=== PATIENT | male | born 1950 | race African-American/Black ===

== ENCOUNTER 2017-08-05 17:44 | Inpatient (IN) ==
[2017-08-05] MEDS ORDERED: ONDANSETRON 4 MG/2 ML VIAL ONE ×2 (18:18→21:08)
[2017-08-05] MEDS ORDERED: MORPHINE 4 MG/1 ML VIAL IV STA (18:38)
[2017-08-05] MEDS ORDERED: SODIUM CHLORIDE 0.9% 1,000 ML IV STA (18:38)
[2017-08-05] MEDS ORDERED: ONDANSETRON 4 MG/2 ML VIAL IV STA ×2 (18:38→21:25)
[2017-08-05 18:42] LABS: Basophils % 0.5 % (0.0-0.8); Eosinophils # 0.2 10*3/uL (0.0-0.87); Eosinophils % 2.9 % (0.00-10.9); Hematocrit 41.3 VOL% (42.0-52.0); Hemoglobin 13.8 GM/DL (14.0-18.0); Immature Granulocytes % 0.3 %; Immature Granulocytes Absolute 0.02 #; Lymphocytes # 1.1 10*3/uL (1.4-4.0); Lymphocytes % 17.6 % (21.2-54.2); Mean Corpuscular HGB Conc 33.4 GM/DL (32-36); Mean Corpuscular Hemoglobin 32 PG (27-34); Mean Corpuscular Volume 94.7 FL (87-102); Mean Platelet Volume 11.3 FL (9.6-12.0); Monocytes # 0.7 10*3/uL (0.11-0.8); Monocytes % 10.8 % (1.7-12.7); Neutrophils # 4.3 10*3/uL (1.4-7.4); Neutrophils % 67.9 % (38.7-73.9); Platelet Count 171 T/CUMM (130-400); Red Blood Count 4.36 MC/CUMM (3.8-5.5); Red Cell Distribution Width 13.6 % (9.3-17.3); White Blood Count 6.3 T/CUMM (4-12)
[2017-08-05 18:58] LABS: Alanine Aminotransferase 22 U/L (16-61); Albumin 3.4 G/DL (3.4-5.0); Alkaline Phosphatase 124 U/L (45-117); Amylase 108 U/L (25-115); Aspartate Amino Transferase 58 U/L (0-37); Bilirubin,Total < 0.39 MG/DL (0.2-1.0); Blood Urea Nitrogen 15 MG/DL (7-18); Calcium 8.9 MG/DL (8.5-10.1); Glucose 106 MG/DL (74-106); Osmolality,Calculated 273.8 MOS/KG (273-304); Potassium 4.2 MMOL/L (3.5-5.1); Sodium 137 MMOL/L (136-145); Total Protein 7.9 G/DL (6.4-8.3)
[2017-08-05] MEDS ORDERED: MORPHINE 4 MG/1 ML VIAL ONE (19:10)
[2017-08-05] MEDS ORDERED: PROMETHAZINE 25 MG/1 ML VIAL IM STA (19:19)
[2017-08-05] MEDS ORDERED: PROMETHAZINE 25 MG/1 ML VIAL ONE (19:20)
[2017-08-05 21:21] LABS: Apearance,Urine Clear (Clear); Bilirubin,Urine Negative (Negative); Blood, Urine Negative (Negative); Glucose,Urine (UA) Negative (Negative); Ketones,Urine 25 mg/dL (Negative); Nitrite,Urine Negative (Negative); Protein,Urine Negative; RBC,Urine 0-1 /HPF (0-4); Urine Color Straw (Yellow); Urine Urobilinogen < 1.0 EU/DL (0.2-1.0)
[2017-08-05 21:22] LABS: Bacteria,Urine Rare /HPF (Few); WBC,Urine 0-2 /HPF (0-6)
[2017-08-06] MEDS ORDERED: HYDROmorphone 2 MG/1 ML VIAL IV PRN (02:08)
[2017-08-06] MEDS ORDERED: ONDANSETRON 4 MG/2 ML VIAL IV PRN (02:08)
[2017-08-06] MEDS ORDERED: ACETAMINOPHEN 325 MG TABLET PO PRN (02:08)
[2017-08-06] MEDS ORDERED: PROMETHAZINE 25 MG/1 ML VIAL IM PRN (02:08)
[2017-08-06] MEDS: SODIUM CHLORIDE 0.45% 1,000 ML IV SCH ×3 (02:40→17:52)
[2017-08-06] MEDS: DOCUSATE SODIUM 100 MG CAPSULE PO SCH ×2 (08:07→21:52)
[2017-08-06] MEDS: PANTOPRAZOLE 40 MG TABLET PO SCH (08:08)
[2017-08-06] MEDS ORDERED: FLUoxetine 20 MG CAPSULE PO PRN (13:09)
[2017-08-06] MEDS: VALSARTAN 80 MG TABLET PO SCH ×2 (15:01→21:53)
[2017-08-06] MEDS: ASPIRIN EC 81 MG TABLET PO SCH (15:02)
[2017-08-06] MEDS: CARVEDILOL 6.25 MG TABLET PO SCH (17:19)
[2017-08-07] MEDS: SODIUM CHLORIDE 0.45% 1,000 ML IV SCH ×2 (03:55→16:23)
[2017-08-07 06:24] LABS: Albumin 2.9 G/DL (3.4-5.0); Bilirubin,Total 1.1 MG/DL (0.2-1.0); Osmolality,Calculated 275.5 MOS/KG (273-304); Potassium 3.8 MMOL/L (3.5-5.1); Total Protein 6.2 G/DL (6.4-8.3)
[2017-08-07] MEDS: CARVEDILOL 6.25 MG TABLET PO SCH ×2 (09:03→16:23)
[2017-08-07] MEDS: VALSARTAN 80 MG TABLET PO SCH (09:03)
[2017-08-07] MEDS: PANTOPRAZOLE 40 MG TABLET PO SCH (09:03)
[2017-08-07] MEDS: ASPIRIN EC 81 MG TABLET PO SCH (09:03)
[2017-08-07] MEDS: DOCUSATE SODIUM 100 MG CAPSULE PO SCH (09:03)
[2017-08-07 16:17] VITALS: BP 146/94
== END 2017-08-07 17:00 | disposition home or self-care (01) | DRG 445 ==
LOC: N.ED 17:44 → N.EDINP 08-06 01:19 → N.5E 08-06 01:49
PROVIDERS: ADMIT Family Medicine; ATTEND Family Medicine

== ENCOUNTER 2018-12-10 02:38 | Inpatient (IN) ==
[2018-12-10 04:02] LABS: Basophils % 0.2 % (0.0-0.8); Eosinophils # 0.1 10*3/uL (0.0-0.87); Eosinophils % 0.4 % (0.00-10.9); Hematocrit 33.5 VOL% (42.0-52.0); Immature Granulocytes % 0.8 %; Lymphocytes # 1.3 10*3/uL (1.4-4.0); Mean Corpuscular HGB Conc 32.8 GM/DL (32-36); Mean Corpuscular Volume 98.8 FL (87-102); Monocytes % 9.3 % (1.7-12.7); Neutrophils % 79.3 % (38.7-73.9); Platelet Count 260 T/CUMM (130-400); Red Blood Count 3.39 MC/CUMM (3.8-5.5); Red Cell Distribution Width 14.1 % (9.3-17.3); White Blood Count 12.8 T/CUMM (4-12)
[2018-12-10 04:08] LABS: INR 1.1; PT Patient Result 11.9 SECS (9.6-12.2); Partial Thromboplastin Time 32.2 SECS (20.8-36.0)
[2018-12-10 04:15] LABS: Albumin 2.2 G/DL (3.4-5.0); Bilirubin,Total 0.5 MG/DL (0.2-1.0); Calcium 8.8 MG/DL (8.5-10.1)
[2018-12-10] MEDS ORDERED: VANCOMYCIN INJ 1,000 MG in SODIUM CHLORIDE 0.9% 250 ML IV STA (06:40)
[2018-12-10] MEDS ORDERED: CEFEPIME 2,000 MG in SODIUM CHLORIDE 0.9% 100 ML IV STA (06:40)
[2018-12-10] MEDS ORDERED: ACETAMINOPHEN 325 MG TABLET PO PRN (06:41)
[2018-12-10] MEDS ORDERED: HYDROmorphone 2 MG TABLET PO PRN (06:41)
[2018-12-10] MEDS ORDERED: CEFEPIME 1,000 MG VIAL ONE (06:43)
[2018-12-10] MEDS: DEXTROSE 5% NACL 0.9% 1,000 ML IV SCH ×2 (07:57→16:06)
[2018-12-10] MEDS ORDERED: FLUoxetine 20 MG CAPSULE PO PRN (09:33)
[2018-12-10] MEDS ORDERED: NITROGLYCERIN SL 0.4 MG TABLET SL PRN (09:33)
[2018-12-10] MEDS: DOCUSATE SODIUM 100 MG CAPSULE PO SCH ×2 (10:15→21:41)
[2018-12-10] MEDS: PANTOPRAZOLE 40 MG VIAL IV SCH (10:15)
[2018-12-10] MEDS: ENOXAPARIN 40 MG/0.4 ML SYRINGE SUBCUT SCH ×2 (10:15→21:40)
[2018-12-10] MEDS: cefTRIAXone 1,000 MG in SYRINGE 1 EACH IV SCH (13:46)
[2018-12-10] MEDS: DEXTROMETHORPHAN ER 6 MG/ML 90 ML/BOTTLE PO PRN (14:51)
[2018-12-10] MEDS: ASCORBIC ACID 500 MG TABLET PO SCH (21:40)
[2018-12-11] MEDS: DEXTROSE 5% NACL 0.9% 1,000 ML IV SCH ×3 (00:53→19:01)
[2018-12-11] MEDS: SIMETHICONE CHEW 125 MG TABLET PO PRN (00:53)
[2018-12-11] MEDS: MORPHINE 4 MG/1 ML VIAL IV PRN ×2 (01:59→06:50)
[2018-12-11] MEDS: ONDANSETRON 4 MG/2 ML VIAL IV PRN (01:59)
[2018-12-11] MEDS: ALBUTEROL/IPRATROPIUM 3 ML NEB RESP TX SCH ×6 (02:50→23:40)
[2018-12-11] MEDS: ASCORBIC ACID 500 MG TABLET PO SCH ×2 (08:29→23:34)
[2018-12-11] MEDS: CHOLECALCIFEROL 1,000 UNIT TABLET PO SCH (08:29)
[2018-12-11] MEDS: AMIODARONE 200 MG TABLET PO SCH (08:29)
[2018-12-11] MEDS: LOSARTAN 50 MG TABLET PO SCH (08:29)
[2018-12-11] MEDS: DOCUSATE SODIUM 100 MG CAPSULE PO SCH ×2 (08:29→23:34)
[2018-12-11] MEDS: PANTOPRAZOLE 40 MG VIAL IV SCH (08:30)
[2018-12-11] MEDS: HYDROmorphone 2 MG/1 ML VIAL IV PRN ×5 (08:55→23:35)
[2018-12-11] MEDS ORDERED: Tadalafil [Cialis] 5 MG PO SCH (09:00)
[2018-12-11] MEDS ORDERED: carvediloL 6.25 MG TABLET PO SCH (09:00)
[2018-12-11] MEDS: ENOXAPARIN 40 MG/0.4 ML SYRINGE SUBCUT SCH ×2 (09:48→23:33)
[2018-12-11] MEDS: cefTRIAXone 1,000 MG in SYRINGE 1 EACH IV SCH ×2 (13:28→14:18)
[2018-12-11] MEDS ORDERED: PHENOL 1.4% THROAT SPRAY 177 ML BOTTLE PO PRN (15:32)
[2018-12-12] MEDS: ALBUTEROL/IPRATROPIUM 3 ML NEB RESP TX SCH ×6 (04:06→22:45)
[2018-12-12] MEDS: HYDROmorphone 2 MG/1 ML VIAL IV PRN ×4 (06:38→22:16)
[2018-12-12] MEDS: DEXTROMETHORPHAN ER 6 MG/ML 90 ML/BOTTLE PO PRN (06:51)
[2018-12-12] MEDS ORDERED: carvediloL 3.125 MG TABLET PO SCH (09:00)
[2018-12-12] MEDS: DEXTROSE 5% NACL 0.9% 1,000 ML IV SCH ×4 (09:42→18:47)
[2018-12-12] MEDS: ENOXAPARIN 40 MG/0.4 ML SYRINGE SUBCUT SCH (09:53)
[2018-12-12] MEDS: AMIODARONE 200 MG TABLET PO SCH (09:55)
[2018-12-12] MEDS: PANTOPRAZOLE 40 MG VIAL IV SCH (09:55)
[2018-12-12] MEDS: LOSARTAN 50 MG TABLET PO SCH (09:55)
[2018-12-12] MEDS: ASCORBIC ACID 500 MG TABLET PO SCH ×2 (09:55→22:07)
[2018-12-12] MEDS: CHOLECALCIFEROL 1,000 UNIT TABLET PO SCH (09:55)
[2018-12-12] MEDS: carvediloL 6.25 MG TABLET PO SCH ×2 (09:55→22:07)
[2018-12-12] MEDS: DOCUSATE SODIUM 100 MG CAPSULE PO SCH ×2 (09:55→22:07)
[2018-12-12] MEDS: oxyCODONE/ACETAMINOPHEN 5-325 MG TABLET PO PRN ×2 (11:45→22:58)
[2018-12-12] MEDS: cefTRIAXone 1,000 MG in SYRINGE 1 EACH IV SCH (11:46)
[2018-12-12 14:59] LABS: Amorphous Crystals,Urine Occasional /HPF (Few); Apearance,Urine Slightly Hazy (Clear); Bacteria,Urine Occasional /HPF (Few); Bilirubin,Urine Negative (Negative); Blood, Urine Negative (Negative); Glucose,Urine (UA) Negative (Negative); Ketones,Urine Negative (Negative); Mucus,Urine Occasional /LPF (Occasional); Nitrite,Urine Negative (Negative); Protein,Urine Negative; RBC,Urine 2 /HPF (0-4); Squamous Epithelial Cell,Urine Occasional /HPF (0-10); Urine Color Yellow (Yellow); Urine Specific Gravity 1.011 (1.001-1.035); Urine Urobilinogen < 2.0 EU/DL (0.2-1.0); WBC,Urine 1 /HPF (0-6)
[2018-12-13] MEDS: HYDROmorphone 2 MG/1 ML VIAL IV PRN ×4 (02:13→13:05)
[2018-12-13] MEDS: ALBUTEROL/IPRATROPIUM 3 ML NEB RESP TX SCH ×6 (02:47→23:15)
[2018-12-13] MEDS: oxyCODONE/ACETAMINOPHEN 5-325 MG TABLET PO PRN ×3 (03:23→21:23)
[2018-12-13] MEDS: DEXTROSE 5% NACL 0.9% 1,000 ML IV SCH ×3 (03:24→22:25)
[2018-12-13 05:24] LABS: Basophils % 0.2 % (0.0-0.8); Eosinophils # 0.1 10*3/uL (0.0-0.87); Eosinophils % 0.9 % (0.00-10.9); Hemoglobin 8.6 GM/DL (14.0-18.0); Immature Granulocytes % 1.1 %; Immature Granulocytes Absolute 0.12 #; Lymphocytes # 0.7 10*3/uL (1.4-4.0); Lymphocytes % 6.4 % (21.2-54.2); Mean Corpuscular HGB Conc 31.9 GM/DL (32-36); Mean Corpuscular Volume 101.1 FL (87-102); Mean Platelet Volume 9.4 FL (9.6-12.0); Monocytes % 9.4 % (1.7-12.7); Platelet Count 207 T/CUMM (130-400); Red Blood Count 2.67 MC/CUMM (3.8-5.5); Red Cell Distribution Width 14.2 % (9.3-17.3); White Blood Count 11.2 T/CUMM (4-12)
[2018-12-13 05:57] LABS: Albumin 1.5 G/DL (3.4-5.0); Bilirubin,Total 0.9 MG/DL (0.2-1.0); Calcium 7.9 MG/DL (8.5-10.1); Osmolality,Calculated 279.3 MOS/KG (273-304); Thyroid Stimulating Hormone 1.96 uIU/ml (0.358-3.74); Total Protein 5.3 G/DL (6.4-8.3)
[2018-12-13] MEDS ORDERED: PROMETHAZINE 25 MG/1 ML VIAL IM ONE (07:00)
[2018-12-13] MEDS ORDERED: MEPERIDINE 50 MG/1 ML VIAL IM ONE (07:00)
[2018-12-13] MEDS ORDERED: MIDAZOLAM 2 MG/2 ML VIAL IV ONE (07:30)
[2018-12-13] MEDS ORDERED: LIDOCAINE 2% 20 ML VIAL RESP TX ONE (07:30)
[2018-12-13] MEDS ORDERED: LIDOCAINE 2% VISCOUS 100 ML BOTTLE SWISH/SPIT ONE (07:30)
[2018-12-13] MEDS ORDERED: LIDOCAINE 1% 20 ML VIAL MISC INJ ONE (07:30)
[2018-12-13] MEDS ORDERED: MIDAZOLAM 2 MG/2 ML VIAL ONE (07:44)
[2018-12-13] MEDS: ASCORBIC ACID 500 MG TABLET PO SCH ×2 (10:08→21:23)
[2018-12-13] MEDS: AMIODARONE 200 MG TABLET PO SCH (10:08)
[2018-12-13] MEDS: DOCUSATE SODIUM 100 MG CAPSULE PO SCH ×2 (10:08→21:23)
[2018-12-13] MEDS: CHOLECALCIFEROL 1,000 UNIT TABLET PO SCH (10:09)
[2018-12-13] MEDS: carvediloL 6.25 MG TABLET PO SCH ×2 (10:09→21:23)
[2018-12-13] MEDS: PANTOPRAZOLE 40 MG VIAL IV SCH (10:09)
[2018-12-13] MEDS: LOSARTAN 50 MG TABLET PO SCH (10:11)
[2018-12-13] MEDS: cefTRIAXone 1,000 MG in SYRINGE 1 EACH IV SCH (13:08)
[2018-12-13] MEDS: ENOXAPARIN 40 MG/0.4 ML SYRINGE SUBCUT SCH (21:23)
[2018-12-14] MEDS: HYDROmorphone 2 MG/1 ML VIAL IV PRN ×5 (00:58→23:43)
[2018-12-14] MEDS: ALBUTEROL/IPRATROPIUM 3 ML NEB RESP TX SCH ×6 (02:56→23:55)
[2018-12-14] MEDS: oxyCODONE/ACETAMINOPHEN 5-325 MG TABLET PO PRN ×3 (03:16→18:28)
[2018-12-14 04:41] LABS: Basophils % 0.2 % (0.0-0.8); Eosinophils # 0.1 10*3/uL (0.0-0.87); Eosinophils % 0.9 % (0.00-10.9); Hematocrit 25.7 VOL% (42.0-52.0); Hemoglobin 8.5 GM/DL (14.0-18.0); Immature Granulocytes % 1.3 %; Immature Granulocytes Absolute 0.13 #; Lymphocytes # 0.6 10*3/uL (1.4-4.0); Lymphocytes % 5.6 % (21.2-54.2); Mean Corpuscular HGB Conc 33.1 GM/DL (32-36); Mean Corpuscular Volume 98.8 FL (87-102); Mean Platelet Volume 9.3 FL (9.6-12.0); Monocytes % 8.7 % (1.7-12.7); Neutrophils % 83.3 % (38.7-73.9); Platelet Count 196 T/CUMM (130-400); Red Cell Distribution Width 14.1 % (9.3-17.3); White Blood Count 10.4 T/CUMM (4-12)
[2018-12-14 05:09] LABS: Albumin 1.4 G/DL (3.4-5.0); Bilirubin,Total 0.5 MG/DL (0.2-1.0); Calcium 7.8 MG/DL (8.5-10.1); Osmolality,Calculated 280.3 MOS/KG (273-304); Risk Ratio 3.05; Total Protein 5.3 G/DL (6.4-8.3); VLDL CHOLESTEROL 8.2 MG/DL
[2018-12-14] MEDS: DEXTROSE 5% NACL 0.9% 1,000 ML IV SCH ×3 (06:19→22:32)
[2018-12-14] MEDS: carvediloL 6.25 MG TABLET PO SCH ×2 (08:02→20:57)
[2018-12-14] MEDS: LOSARTAN 50 MG TABLET PO SCH (08:02)
[2018-12-14] MEDS: ASCORBIC ACID 500 MG TABLET PO SCH ×2 (08:02→20:56)
[2018-12-14] MEDS: DOCUSATE SODIUM 100 MG CAPSULE PO SCH ×2 (08:02→20:57)
[2018-12-14] MEDS: CHOLECALCIFEROL 1,000 UNIT TABLET PO SCH (08:02)
[2018-12-14] MEDS: AMIODARONE 200 MG TABLET PO SCH (08:02)
[2018-12-14] MEDS: PANTOPRAZOLE 40 MG VIAL IV SCH (08:03)
[2018-12-14] MEDS: ENOXAPARIN 40 MG/0.4 ML SYRINGE SUBCUT SCH ×2 (10:22→23:05)
[2018-12-14] MEDS: cefTRIAXone 1,000 MG in SYRINGE 1 EACH IV SCH (11:58)
[2018-12-14] MEDS ORDERED: PIPERACILLIN/TAZOBACTAM 4,500 MG in SODIUM CHLORIDE 0.9% 100 ML IV SCH (14:00)
[2018-12-14] MEDS: PIPERACILLIN/TAZOBACTAM 3,375 MG in SODIUM CHLORIDE 0.9% 100 ML IV SCH ×2 (14:17→22:29)
[2018-12-15] MEDS: oxyCODONE/ACETAMINOPHEN 5-325 MG TABLET PO PRN ×3 (02:08→21:36)
[2018-12-15] MEDS: ALBUTEROL/IPRATROPIUM 3 ML NEB RESP TX SCH ×6 (03:16→23:55)
[2018-12-15] MEDS: DEXTROSE 5% NACL 0.9% 1,000 ML IV SCH (05:08)
[2018-12-15 06:16] LABS: Basophils % 0.1 % (0.0-0.8); Eosinophils # 0.1 10*3/uL (0.0-0.87); Eosinophils % 0.9 % (0.00-10.9); Hematocrit 25.9 VOL% (42.0-52.0); Hemoglobin 8.7 GM/DL (14.0-18.0); Immature Granulocytes % 0.8 %; Immature Granulocytes Absolute 0.08 #; Lymphocytes # 0.8 10*3/uL (1.4-4.0); Lymphocytes % 8.1 % (21.2-54.2); Mean Corpuscular HGB Conc 33.6 GM/DL (32-36); Mean Corpuscular Volume 98.9 FL (87-102); Mean Platelet Volume 9.5 FL (9.6-12.0); Monocytes % 8.8 % (1.7-12.7); Neutrophils % 81.3 % (38.7-73.9); Platelet Count 222 T/CUMM (130-400); Red Blood Count 2.62 MC/CUMM (3.8-5.5); Red Cell Distribution Width 14.3 % (9.3-17.3); White Blood Count 9.8 T/CUMM (4-12)
[2018-12-15 06:41] LABS: Albumin 1.4 G/DL (3.4-5.0); Bilirubin,Total 0.7 MG/DL (0.2-1.0); Calcium 8.1 MG/DL (8.5-10.1); Osmolality,Calculated 281.1 MOS/KG (273-304); Total Protein 5.5 G/DL (6.4-8.3)
[2018-12-15] MEDS: PIPERACILLIN/TAZOBACTAM 3,375 MG in SODIUM CHLORIDE 0.9% 100 ML IV SCH ×3 (07:11→21:34)
[2018-12-15] MEDS ORDERED: FUROSEMIDE 40 MG/4 ML VIAL IV ONE (08:53)
[2018-12-15] MEDS: HYDROmorphone 2 MG/1 ML VIAL IV PRN ×3 (09:34→19:49)
[2018-12-15] MEDS ORDERED: LIDOCAINE 2% 20 ML VIAL MISC INJ ONE (10:00)
[2018-12-15] MEDS: LOSARTAN 50 MG TABLET PO SCH (10:25)
[2018-12-15] MEDS: DOCUSATE SODIUM 100 MG CAPSULE PO SCH ×2 (10:25→21:26)
[2018-12-15] MEDS: ASCORBIC ACID 500 MG TABLET PO SCH ×2 (10:26→21:26)
[2018-12-15] MEDS: carvediloL 6.25 MG TABLET PO SCH ×2 (10:26→21:26)
[2018-12-15] MEDS: AMIODARONE 200 MG TABLET PO SCH (10:26)
[2018-12-15] MEDS: CHOLECALCIFEROL 1,000 UNIT TABLET PO SCH (10:26)
[2018-12-15] MEDS: PANTOPRAZOLE 40 MG VIAL IV SCH (10:27)
[2018-12-15] MEDS ORDERED: LIDOCAINE 2%/EPI 20 ML VIAL MISC INJ ONE (10:38)
[2018-12-15] MEDS ORDERED: MORPHINE 4 MG/1 ML VIAL IV ONE (10:40)
[2018-12-15] MEDS ORDERED: LIDOCAINE 1%/EPI INJ 20 ML VIAL MISC INJ ONE (11:00)
[2018-12-15] MEDS: ENOXAPARIN 40 MG/0.4 ML SYRINGE SUBCUT SCH ×2 (12:34→21:38)
[2018-12-15] MEDS ORDERED: SODIUM CHLORIDE 0.9% 500 ML IV ONE (14:16)
[2018-12-16] MEDS: ALBUTEROL/IPRATROPIUM 3 ML NEB RESP TX SCH ×6 (03:30→23:15)
[2018-12-16] MEDS: HYDROmorphone 2 MG/1 ML VIAL IV PRN ×4 (04:43→21:40)
[2018-12-16 05:44] LABS: Basophils % 0.2 % (0.0-0.8); Eosinophils # 0.1 10*3/uL (0.0-0.87); Eosinophils % 1.6 % (0.00-10.9); Hematocrit 27.9 VOL% (42.0-52.0); Hemoglobin 9.3 GM/DL (14.0-18.0); Immature Granulocytes % 0.7 %; Immature Granulocytes Absolute 0.04 #; Lymphocytes % 18.6 % (21.2-54.2); Mean Corpuscular HGB Conc 33.3 GM/DL (32-36); Mean Corpuscular Volume 96.5 FL (87-102); Mean Platelet Volume 9.2 FL (9.6-12.0); Monocytes % 10.4 % (1.7-12.7); Neutrophils % 68.5 % (38.7-73.9); Platelet Count 227 T/CUMM (130-400); Red Blood Count 2.89 MC/CUMM (3.8-5.5); Red Cell Distribution Width 14.2 % (9.3-17.3); White Blood Count 5.5 T/CUMM (4-12)
[2018-12-16 06:07] LABS: Albumin 1.5 G/DL (3.4-5.0); Bilirubin,Total 0.6 MG/DL (0.2-1.0); Calcium 8.3 MG/DL (8.5-10.1); Osmolality,Calculated 282.1 MOS/KG (273-304); Total Protein 5.8 G/DL (6.4-8.3)
[2018-12-16] MEDS: PIPERACILLIN/TAZOBACTAM 3,375 MG in SODIUM CHLORIDE 0.9% 100 ML IV SCH ×3 (06:50→21:44)
[2018-12-16] MEDS: LOSARTAN 50 MG TABLET PO SCH (08:16)
[2018-12-16] MEDS: ASCORBIC ACID 500 MG TABLET PO SCH ×2 (08:16→21:40)
[2018-12-16] MEDS: carvediloL 6.25 MG TABLET PO SCH ×2 (08:16→21:40)
[2018-12-16] MEDS: AMIODARONE 200 MG TABLET PO SCH (08:16)
[2018-12-16] MEDS: CHOLECALCIFEROL 1,000 UNIT TABLET PO SCH (08:16)
[2018-12-16] MEDS: DOCUSATE SODIUM 100 MG CAPSULE PO SCH ×2 (08:16→21:40)
[2018-12-16] MEDS: PANTOPRAZOLE 40 MG VIAL IV SCH (08:21)
[2018-12-16] MEDS: ENOXAPARIN 40 MG/0.4 ML SYRINGE SUBCUT SCH ×2 (09:04→21:42)
[2018-12-16] MEDS ORDERED: ALTEPLASE 5 MG in SYRINGE 1 EACH INTRAPLEUR ONE (10:30)
[2018-12-16] MEDS: DEXTROMETHORPHAN ER 6 MG/ML 90 ML/BOTTLE PO PRN (10:54)
[2018-12-16] MEDS: oxyCODONE/ACETAMINOPHEN 5-325 MG TABLET PO PRN ×3 (11:45→23:11)
[2018-12-16] MEDS ORDERED: POLYETHYLENE GLYCOL POWDER 17 GM PACK PO PRN (13:31)
[2018-12-16] MEDS: traMADol 50 MG TABLET PO PRN (21:55)
[2018-12-17] MEDS: oxyCODONE/ACETAMINOPHEN 5-325 MG TABLET PO PRN ×2 (02:20→21:27)
[2018-12-17] MEDS: ALBUTEROL/IPRATROPIUM 3 ML NEB RESP TX SCH ×6 (02:33→23:44)
[2018-12-17 05:37] LABS: Basophils % 0.2 % (0.0-0.8); Eosinophils # 0.1 10*3/uL (0.0-0.87); Eosinophils % 1.8 % (0.00-10.9); Hematocrit 27.5 VOL% (42.0-52.0); Hemoglobin 9.1 GM/DL (14.0-18.0); Immature Granulocytes % 0.6 %; Immature Granulocytes Absolute 0.03 #; Lymphocytes # 1.1 10*3/uL (1.4-4.0); Lymphocytes % 20.9 % (21.2-54.2); Mean Corpuscular HGB Conc 33.1 GM/DL (32-36); Mean Corpuscular Volume 96.2 FL (87-102); Mean Platelet Volume 9.1 FL (9.6-12.0); Monocytes % 11.2 % (1.7-12.7); Neutrophils % 65.3 % (38.7-73.9); Platelet Count 236 T/CUMM (130-400); Red Blood Count 2.86 MC/CUMM (3.8-5.5); Red Cell Distribution Width 14.1 % (9.3-17.3)
[2018-12-17 05:54] LABS: Albumin 1.5 G/DL (3.4-5.0); Bilirubin,Total 0.6 MG/DL (0.2-1.0); Calcium 7.9 MG/DL (8.5-10.1); Osmolality,Calculated 277.4 MOS/KG (273-304); Total Protein 5.6 G/DL (6.4-8.3)
[2018-12-17 06:11] LABS: Atypical Lymphocytes Few; Eosinophils 2 % (0-10); Hypochromasia 1+; Lymphocytes 15 % (20-55); Metamyelocytes 1 %; Segmented Neutrophils 72 % (50-85); Total Cells Counted 100
[2018-12-17 06:12] LABS: Microcytosis Slight; Platelet Estimate Normal
[2018-12-17] MEDS: PIPERACILLIN/TAZOBACTAM 3,375 MG in SODIUM CHLORIDE 0.9% 100 ML IV SCH ×4 (06:40→21:38)
[2018-12-17] MEDS: ASCORBIC ACID 500 MG TABLET PO SCH ×2 (08:08→21:34)
[2018-12-17] MEDS: LOSARTAN 50 MG TABLET PO SCH (08:08)
[2018-12-17] MEDS: DOCUSATE SODIUM 100 MG CAPSULE PO SCH ×2 (08:08→21:26)
[2018-12-17] MEDS: carvediloL 6.25 MG TABLET PO SCH ×2 (08:08→21:26)
[2018-12-17] MEDS: AMIODARONE 200 MG TABLET PO SCH (08:08)
[2018-12-17] MEDS: CHOLECALCIFEROL 1,000 UNIT TABLET PO SCH (08:08)
[2018-12-17] MEDS: ONDANSETRON 4 MG/2 ML VIAL IV PRN (08:12)
[2018-12-17] MEDS: PANTOPRAZOLE 40 MG VIAL IV SCH (08:14)
[2018-12-17] MEDS: ENOXAPARIN 40 MG/0.4 ML SYRINGE SUBCUT SCH ×3 (08:15→21:35)
[2018-12-17] MEDS: HYDROmorphone 2 MG/1 ML VIAL IV PRN (15:11)
[2018-12-18] MEDS: ALBUTEROL/IPRATROPIUM 3 ML NEB RESP TX SCH ×6 (05:15→23:25)
[2018-12-18] MEDS: PIPERACILLIN/TAZOBACTAM 3,375 MG in SODIUM CHLORIDE 0.9% 100 ML IV SCH ×3 (05:36→21:25)
[2018-12-18 06:31] LABS: Basophils % 0.2 % (0.0-0.8); Eosinophils # 0.1 10*3/uL (0.0-0.87); Eosinophils % 1.8 % (0.00-10.9); Hemoglobin 8.6 GM/DL (14.0-18.0); Immature Granulocytes % 0.8 %; Immature Granulocytes Absolute 0.04 #; Lymphocytes # 1.2 10*3/uL (1.4-4.0); Lymphocytes % 24.1 % (21.2-54.2); Mean Corpuscular HGB Conc 33.1 GM/DL (32-36); Mean Corpuscular Volume 96.7 FL (87-102); Mean Platelet Volume 9.1 FL (9.6-12.0); Monocytes % 14.7 % (1.7-12.7); Neutrophils % 58.4 % (38.7-73.9); Platelet Count 240 T/CUMM (130-400); Red Blood Count 2.69 MC/CUMM (3.8-5.5); Red Cell Distribution Width 14.2 % (9.3-17.3); White Blood Count 4.9 T/CUMM (4-12)
[2018-12-18 06:49] LABS: Osmolality,Calculated 278.3 MOS/KG (273-304)
[2018-12-18 06:53] LABS: Hypochromasia 1+; Microcytosis Slight; Platelet Estimate Adequate
[2018-12-18] MEDS: AMIODARONE 200 MG TABLET PO SCH (09:30)
[2018-12-18] MEDS: DOCUSATE SODIUM 100 MG CAPSULE PO SCH ×2 (09:30→21:21)
[2018-12-18] MEDS: HYDROmorphone 2 MG/1 ML VIAL IV PRN ×4 (09:31→17:51)
[2018-12-18] MEDS: CHOLECALCIFEROL 1,000 UNIT TABLET PO SCH (09:31)
[2018-12-18] MEDS: ASCORBIC ACID 500 MG TABLET PO SCH ×2 (09:31→21:21)
[2018-12-18] MEDS: LOSARTAN 50 MG TABLET PO SCH (09:31)
[2018-12-18] MEDS: carvediloL 6.25 MG TABLET PO SCH ×2 (09:31→21:22)
[2018-12-18] MEDS: PANTOPRAZOLE 40 MG VIAL IV SCH (09:31)
[2018-12-18] MEDS: ONDANSETRON 4 MG/2 ML VIAL IV PRN (09:32)
[2018-12-18] MEDS: ENOXAPARIN 40 MG/0.4 ML SYRINGE SUBCUT SCH ×2 (09:33→21:52)
[2018-12-18] MEDS ORDERED: ALTEPLASE 5 MG in SYRINGE 1 EACH INTRAPLEUR ONE (09:37)
[2018-12-18] MEDS: ALPRAZolam 0.25 MG TABLET PO PRN ×2 (12:06→21:21)
[2018-12-18] MEDS: oxyCODONE/ACETAMINOPHEN 5-325 MG TABLET PO PRN ×2 (12:10→21:22)
[2018-12-18] MEDS: SIMETHICONE CHEW 125 MG TABLET PO PRN (16:10)
[2018-12-19] MEDS: oxyCODONE/ACETAMINOPHEN 5-325 MG TABLET PO PRN (02:32)
[2018-12-19] MEDS: ALBUTEROL/IPRATROPIUM 3 ML NEB RESP TX SCH ×6 (03:38→23:10)
[2018-12-19] MEDS: PIPERACILLIN/TAZOBACTAM 3,375 MG in SODIUM CHLORIDE 0.9% 100 ML IV SCH ×3 (05:47→21:22)
[2018-12-19 06:09] LABS: Basophils % 0.2 % (0.0-0.8); Eosinophils # 0.1 10*3/uL (0.0-0.87); Eosinophils % 2.3 % (0.00-10.9); Hematocrit 26.7 VOL% (42.0-52.0); Hemoglobin 8.8 GM/DL (14.0-18.0); Immature Granulocytes % 0.8 %; Immature Granulocytes Absolute 0.04 #; Lymphocytes # 1.1 10*3/uL (1.4-4.0); Lymphocytes % 20.6 % (21.2-54.2); Mean Corpuscular Volume 97.8 FL (87-102); Mean Platelet Volume 8.9 FL (9.6-12.0); Monocytes % 16.1 % (1.7-12.7); Platelet Count 256 T/CUMM (130-400); Red Blood Count 2.73 MC/CUMM (3.8-5.5); Red Cell Distribution Width 14.1 % (9.3-17.3); White Blood Count 5.3 T/CUMM (4-12)
[2018-12-19 06:19] LABS: Calcium 8.1 MG/DL (8.5-10.1); Osmolality,Calculated 279.3 MOS/KG (273-304)
[2018-12-19 06:31] LABS: Eosinophils 3 % (0-10); Hypochromasia 1+; Lymphocytes 22 % (20-55); Microcytosis Slight; Platelet Estimate Adequate; Segmented Neutrophils 63 % (50-85); Total Cells Counted 100
[2018-12-19] MEDS: ASCORBIC ACID 500 MG TABLET PO SCH ×2 (09:25→21:21)
[2018-12-19] MEDS: CHOLECALCIFEROL 1,000 UNIT TABLET PO SCH (09:26)
[2018-12-19] MEDS: LOSARTAN 50 MG TABLET PO SCH (09:28)
[2018-12-19] MEDS: carvediloL 6.25 MG TABLET PO SCH ×2 (09:28→21:21)
[2018-12-19] MEDS: AMIODARONE 200 MG TABLET PO SCH (09:28)
[2018-12-19] MEDS: DOCUSATE SODIUM 100 MG CAPSULE PO SCH ×2 (09:33→21:21)
[2018-12-19] MEDS: ENOXAPARIN 40 MG/0.4 ML SYRINGE SUBCUT SCH ×2 (10:20→21:21)
[2018-12-19] MEDS: PANTOPRAZOLE 40 MG TABLET PO SCH (10:28)
[2018-12-19] MEDS: ALPRAZolam 0.25 MG TABLET PO PRN (18:30)
[2018-12-19] MEDS: HYDROmorphone 2 MG/1 ML VIAL IV PRN (21:31)
[2018-12-20] MEDS: traMADol 50 MG TABLET PO PRN (00:18)
[2018-12-20] MEDS: ALBUTEROL/IPRATROPIUM 3 ML NEB RESP TX SCH ×4 (03:10→14:53)
[2018-12-20] MEDS: HYDROmorphone 2 MG/1 ML VIAL IV PRN (04:33)
[2018-12-20 05:46] LABS: Basophils % 0.4 % (0.0-0.8); Eosinophils # 0.2 10*3/uL (0.0-0.87); Eosinophils % 2.8 % (0.00-10.9); Hematocrit 28.2 VOL% (42.0-52.0); Hemoglobin 9.3 GM/DL (14.0-18.0); Immature Granulocytes % 0.7 %; Immature Granulocytes Absolute 0.04 #; Lymphocytes # 1.3 10*3/uL (1.4-4.0); Lymphocytes % 24.8 % (21.2-54.2); Mean Corpuscular Volume 97.9 FL (87-102); Monocytes % 14.3 % (1.7-12.7); Platelet Count 278 T/CUMM (130-400); Red Blood Count 2.88 MC/CUMM (3.8-5.5); Red Cell Distribution Width 14.1 % (9.3-17.3); White Blood Count 5.4 T/CUMM (4-12)
[2018-12-20] MEDS: PIPERACILLIN/TAZOBACTAM 3,375 MG in SODIUM CHLORIDE 0.9% 100 ML IV SCH ×2 (05:57→13:49)
[2018-12-20 06:02] LABS: Calcium 8.2 MG/DL (8.5-10.1); Osmolality,Calculated 273.5 MOS/KG (273-304)
[2018-12-20 06:14] LABS: Eosinophils 1 % (0-10); Hypochromasia 1+; Lymphocytes 21 % (20-55); Myelocytes 1 %; Platelet Estimate Normal; Segmented Neutrophils 68 % (50-85); Total Cells Counted 100
[2018-12-20] MEDS: ONDANSETRON 4 MG/2 ML VIAL IV PRN (07:40)
[2018-12-20] MEDS: DOCUSATE SODIUM 100 MG CAPSULE PO SCH (09:44)
[2018-12-20] MEDS: AMIODARONE 200 MG TABLET PO SCH (09:45)
[2018-12-20] MEDS: carvediloL 6.25 MG TABLET PO SCH (09:45)
[2018-12-20] MEDS: LOSARTAN 50 MG TABLET PO SCH (09:46)
[2018-12-20] MEDS: PANTOPRAZOLE 40 MG TABLET PO SCH (09:47)
[2018-12-20] MEDS: ASCORBIC ACID 500 MG TABLET PO SCH (09:47)
[2018-12-20] MEDS: CHOLECALCIFEROL 1,000 UNIT TABLET PO SCH (09:48)
[2018-12-20] MEDS: ENOXAPARIN 40 MG/0.4 ML SYRINGE SUBCUT SCH (10:24)
[2018-12-20 16:16] VITALS: BP 143/75
[2018-12-20] MEDS ORDERED: AMOXICILLIN/CLAV 875 MG TABLET PO SCH (21:00)
[2018-12-20] MEDS ORDERED: BUDESONIDE/FORMOTEROL 160-4.5 INHALER 6 GM INH SCH (21:00)
[2018-12-22] MEDS ORDERED: Evolocumab [Repatha Sureclick] 140 MG SUBCUT SCH (07:00)
== END 2018-12-20 19:09 | disposition home health service (06) | DRG 180 ==
LOC: EDUNIT# → EDBD → N.EDINP 02:38 → N.ED 02:38 → N.EDINP 08:48 → N.5E 09:04
PROVIDERS: ADMIT Family Medicine; ATTEND Family Medicine
PROC: BRONCHB (2018-12-13 07:35)
PROC: IRTHORA (2018-12-14 08:57)

== ENCOUNTER 2020-11-24 08:59 | Inpatient (IN) ==
[2020-11-24 10:14] LABS: Basophils % 0.5 % (0.0-0.8); Eosinophils # 0.1 10*3/uL (0.0-0.87); Hemoglobin 12.7 GM/DL (14.0-18.0); Immature Granulocytes % 0.5 %; Immature Granulocytes Absolute 0.02 #; Lymphocytes # 1.3 10*3/uL (1.4-4.0); Lymphocytes % 29.6 % (21.2-54.2); Mean Corpuscular HGB Conc 32.6 GM/DL (32-36); Mean Corpuscular Volume 100.5 FL (87-102); Mean Platelet Volume 10.5 FL (9.6-12.0); Monocytes % 15.2 % (1.7-12.7); Neutrophils % 52.2 % (38.7-73.9); Platelet Count 148 T/CUMM (130-400); Red Blood Count 3.88 MC/CUMM (3.8-5.5); White Blood Count 4.4 T/CUMM (4-12)
[2020-11-24 10:23] LABS: INR 1.1; PT Patient Result 12.3 SECS (10.5-12.0)
[2020-11-24] MEDS ORDERED: ONDANSETRON 4 MG/2 ML VIAL ONE (10:23)
[2020-11-24] MEDS ORDERED: cefTRIAXone 1,000 MG in SODIUM CHLORIDE 0.9% 100 ML IV STA (10:27)
[2020-11-24] MEDS ORDERED: SODIUM CHLORIDE 0.9% 1,000 ML IV STA (10:29)
[2020-11-24] MEDS ORDERED: ONDANSETRON 4 MG/2 ML VIAL IV STA (10:29)
[2020-11-24 10:30] LABS: Bilirubin,Urine Negative (Negative); Blood, Urine Negative (Negative); Glucose,Urine (UA) Negative (Negative); Ketones,Urine Negative (Negative); Mucus,Urine Occasional /LPF (Occasional); Nitrite,Urine Positive (Negative); Protein,Urine Negative; RBC,Urine 2 /HPF (0-4); Squamous Epithelial Cell,Urine Occasional /HPF (0-10); Urine Appearance CLEAR (Clear); Urine Color Amber (Yellow); Urine Specific Gravity 1.021 (1.001-1.035)
[2020-11-24 10:32] LABS: Albumin 2.9 G/DL (3.4-5.0); Bilirubin,Total 0.7 MG/DL (0.20-1.00); Osmolality,Calculated 274.7 MOS/KG (273-304); Total Protein 6.9 G/DL (6.4-8.2)
[2020-11-24 10:33] LABS: Eosinophils 2 % (0-10); Lymphocytes 37 % (20-55); Segmented Neutrophils 54 % (50-85); Total Cells Counted 100
[2020-11-24 10:34] LABS: Hypochromasia 1+; Microcytosis 1+; Platelet Estimate Adequate
[2020-11-24] MEDS ORDERED: ONDANSETRON 4 MG/2 ML VIAL IV PRN (12:18)
[2020-11-24] MEDS ORDERED: ACETAMINOPHEN 325 MG TABLET PO PRN (12:18)
[2020-11-24] MEDS: SODIUM CHLORIDE 0.9% 1,000 ML IV SCH ×2 (13:00→21:41)
[2020-11-24] MEDS: DOCUSATE SODIUM 100 MG CAPSULE PO SCH (21:38)
[2020-11-24] MEDS: APIXABAN 5 MG TABLET PO SCH ×2 (21:38→21:39)
[2020-11-25] MEDS ORDERED: ZALEPLON 5 MG CAPSULE PO PRN (07:43)
[2020-11-25] MEDS ORDERED: MAGNESIUM HYDROXIDE SUSP 30 ML UDCUP PO PRN (07:43)
[2020-11-25 08:23] LABS: Basophils % 0.5 % (0.0-0.8); Eosinophils # 0.1 10*3/uL (0.0-0.87); Eosinophils % 1.7 % (0.00-10.9); Hematocrit 37.5 VOL% (42.0-52.0); Hemoglobin 12.3 GM/DL (14.0-18.0); Immature Granulocytes % 0.2 %; Immature Granulocytes Absolute 0.01 #; Lymphocytes # 1.1 10*3/uL (1.4-4.0); Lymphocytes % 27.3 % (21.2-54.2); Mean Corpuscular HGB Conc 32.8 GM/DL (32-36); Mean Corpuscular Volume 100.3 FL (87-102); Mean Platelet Volume 10.1 FL (9.6-12.0); Monocytes % 15.1 % (1.7-12.7); Neutrophils % 55.2 % (38.7-73.9); Platelet Count 150 T/CUMM (130-400); Red Blood Count 3.74 MC/CUMM (3.8-5.5); Red Cell Distribution Width 14.6 % (9.3-17.3); White Blood Count 4.1 T/CUMM (4-12)
[2020-11-25] MEDS: LOSARTAN 50 MG TABLET PO SCH (08:32)
[2020-11-25] MEDS: AMIODARONE 200 MG TABLET PO SCH (08:32)
[2020-11-25] MEDS: ALPRAZolam 0.5 MG TABLET PO SCH ×2 (08:34→21:13)
[2020-11-25] MEDS: DOCUSATE SODIUM 100 MG CAPSULE PO SCH ×2 (08:34→21:13)
[2020-11-25] MEDS: carvediloL 12.5 MG TABLET PO SCH ×2 (08:34→21:14)
[2020-11-25] MEDS: PANTOPRAZOLE 40 MG TABLET PO SCH (08:34)
[2020-11-25] MEDS: APIXABAN 5 MG TABLET PO SCH ×2 (08:34→21:13)
[2020-11-25 08:39] LABS: Albumin 2.7 G/DL (3.4-5.0); Bilirubin,Total 0.8 MG/DL (0.20-1.00); Calcium 8.3 MG/DL (8.5-10.1); Osmolality,Calculated 271.8 MOS/KG (273-304); Potassium 4.2 MMOL/L (3.5-5.1); Total Protein 6.3 G/DL (6.4-8.2)
[2020-11-25] MEDS: SODIUM CHLORIDE 0.9% 1,000 ML IV SCH ×3 (09:51→21:21)
[2020-11-25 12:11] LABS: Risk Ratio 5.75
[2020-11-25] MEDS ORDERED: cefTRIAXone 1,000 MG in SODIUM CHLORIDE 0.9% 100 ML IV SCH (21:00)
[2020-11-26] MEDS: SODIUM CHLORIDE 0.9% 1,000 ML IV SCH ×3 (02:20→15:40)
[2020-11-26 06:35] LABS: Basophils % 0.5 % (0.0-0.8); Eosinophils # 0.2 10*3/uL (0.0-0.87); Eosinophils % 3.9 % (0.00-10.9); Hematocrit 35.8 VOL% (42.0-52.0); Hemoglobin 11.8 GM/DL (14.0-18.0); Immature Granulocytes % 0.3 %; Immature Granulocytes Absolute 0.01 #; Lymphocytes # 1.4 10*3/uL (1.4-4.0); Lymphocytes % 37.2 % (21.2-54.2); Mean Corpuscular Volume 99.4 FL (87-102); Mean Platelet Volume 10.7 FL (9.6-12.0); Monocytes % 16.1 % (1.7-12.7); Platelet Count 138 T/CUMM (130-400); Red Cell Distribution Width 14.2 % (9.3-17.3); White Blood Count 3.8 T/CUMM (4-12)
[2020-11-26 06:56] LABS: Calcium 8.2 MG/DL (8.5-10.1); Osmolality,Calculated 273.7 MOS/KG (273-304); Potassium 3.6 MMOL/L (3.5-5.1)
[2020-11-26 07:01] LABS: Band Neutrophils 1 % (0-10); Eosinophils 1 % (0-10); Hypochromasia Slight; Lymphocytes 39 % (20-55); Microcytosis Slight; Platelet Estimate Normal; Segmented Neutrophils 47 % (50-85); Total Cells Counted 100
[2020-11-26] MEDS ORDERED: TAMSULOSIN 0.4 MG CAPSULE PO SCH (09:00)
[2020-11-26] MEDS ORDERED: cloNIDine 0.1 MG TABLET PO SCH (09:00)
[2020-11-26] MEDS: LOSARTAN 50 MG TABLET PO SCH (09:17)
[2020-11-26] MEDS: DOCUSATE SODIUM 100 MG CAPSULE PO SCH (09:17)
[2020-11-26] MEDS: PANTOPRAZOLE 40 MG TABLET PO SCH (09:18)
[2020-11-26] MEDS: carvediloL 12.5 MG TABLET PO SCH (09:18)
[2020-11-26] MEDS: AMIODARONE 200 MG TABLET PO SCH (09:18)
[2020-11-26] MEDS: APIXABAN 5 MG TABLET PO SCH (09:18)
[2020-11-26] MEDS: ALPRAZolam 0.5 MG TABLET PO SCH (09:21)
[2020-11-26 16:03] VITALS: BP 157/71
== END 2020-11-26 15:39 | DRG 65 ==
LOC: N.ED 08:59 → N.EDINP 10:21 → N.5E 13:50
PROVIDERS: ADMIT Family Medicine; ATTEND Family Medicine

== ENCOUNTER 2021-02-21 15:31 | Inpatient (IN) ==
[2021-02-21 16:51] LABS: Basophils % 0.7 % (0.0-0.8); Eosinophils # 0.1 10*3/uL (0.0-0.87); Eosinophils % 1.3 % (0.00-10.9); Hematocrit 37.5 VOL% (42.0-52.0); Hemoglobin 12.5 GM/DL (14.0-18.0); Immature Granulocytes % 0.2 %; Immature Granulocytes Absolute 0.01 #; Lymphocytes # 1.5 10*3/uL (1.4-4.0); Lymphocytes % 32.6 % (21.2-54.2); Mean Corpuscular HGB Conc 33.3 GM/DL (32-36); Mean Corpuscular Volume 100.3 FL (87-102); Mean Platelet Volume 10.8 FL (9.6-12.0); Monocytes % 12.3 % (1.7-12.7); Neutrophils % 52.9 % (38.7-73.9); Platelet Count 194 T/CUMM (130-400); Red Blood Count 3.74 MC/CUMM (3.8-5.5); Red Cell Distribution Width 14.7 % (9.3-17.3); White Blood Count 4.6 T/CUMM (4-12)
[2021-02-21 17:00] LABS: INR 1.2; PT Patient Result 12.8 SECS (10.5-12.0); Partial Thromboplastin Time 33.8 SECS (23.8-32.1)
[2021-02-21 17:04] LABS: Albumin 2.8 G/DL (3.4-5.0); Bilirubin,Total 0.5 MG/DL (0.20-1.00); Calcium 8.9 MG/DL (8.5-10.1); Osmolality,Calculated 279.7 MOS/KG (273-304); Total Protein 7.3 G/DL (6.4-8.2)
[2021-02-21 17:58] LABS: Bilirubin,Urine Negative (Negative); Blood, Urine Negative (Negative); Glucose,Urine (UA) Negative (Negative); Hyaline Casts,Urine 12 /LPF (0-3); Ketones,Urine Negative (Negative); Mucus,Urine Occasional /LPF (Occasional); Nitrite,Urine Negative (Negative); Protein,Urine Negative; Squamous Epithelial Cell,Urine Occasional /HPF (0-10); Urine Appearance CLEAR (Clear); Urine Color Yellow (Yellow); Urine Specific Gravity 1.025 (1.001-1.035)
[2021-02-21] MEDS ORDERED: hydrALAZINE 20 MG/1 ML VIAL IV STA ×2 (18:43→18:47)
[2021-02-21] MEDS ORDERED: ACETAMINOPHEN 325 MG TABLET PO PRN (19:35)
[2021-02-21] MEDS ORDERED: CYPROHEPTADINE 4 MG TABLET PO PRN (19:37)
[2021-02-21] MEDS ORDERED: ALPRAZolam 0.5 MG TABLET PO PRN (19:37)
[2021-02-21] MEDS ORDERED: NON-FORMULARY MEDICATION (Melatonin 10 mg Tablet) PO PRN (19:37)
[2021-02-21] MEDS: MIDODRINE 5 MG TABLET PO SCH (22:11)
[2021-02-21] MEDS: DOCUSATE SODIUM 100 MG CAPSULE PO SCH (22:12)
[2021-02-21] MEDS: APIXABAN 5 MG TABLET PO SCH (22:12)
[2021-02-21] MEDS: ONDANSETRON 4 MG/2 ML VIAL IV PRN (23:42)
[2021-02-22 05:04] LABS: Basophils % 0.8 % (0.0-0.8); Eosinophils # 0.1 10*3/uL (0.0-0.87); Eosinophils % 2.6 % (0.00-10.9); Hematocrit 37.8 VOL% (42.0-52.0); Hemoglobin 12.6 GM/DL (14.0-18.0); Immature Granulocytes % 0.5 %; Immature Granulocytes Absolute 0.02 #; Lymphocytes # 1.4 10*3/uL (1.4-4.0); Lymphocytes % 35.3 % (21.2-54.2); Mean Corpuscular HGB Conc 33.3 GM/DL (32-36); Mean Corpuscular Volume 98.4 FL (87-102); Mean Platelet Volume 10.3 FL (9.6-12.0); Monocytes % 13.5 % (1.7-12.7); Neutrophils % 47.3 % (38.7-73.9); Platelet Count 190 T/CUMM (130-400); Red Blood Count 3.84 MC/CUMM (3.8-5.5); Red Cell Distribution Width 14.6 % (9.3-17.3); White Blood Count 3.9 T/CUMM (4-12)
[2021-02-22 05:26] LABS: Albumin 2.7 G/DL (3.4-5.0); Bilirubin,Total 0.8 MG/DL (0.20-1.00); Calcium 8.9 MG/DL (8.5-10.1); Osmolality,Calculated 276.7 MOS/KG (273-304); Potassium 3.7 MMOL/L (3.5-5.1); Total Protein 7.1 G/DL (6.4-8.2)
[2021-02-22 05:28] LABS: Reactive Lymphocytes Few
[2021-02-22 05:31] LABS: Hypochromasia 1+; Platelet Estimate Normal
[2021-02-22] MEDS: OXYBUTYNIN XL 5 MG TABLET PO SCH (09:18)
[2021-02-22] MEDS: MIDODRINE 5 MG TABLET PO SCH ×3 (09:18→20:37)
[2021-02-22] MEDS: DOCUSATE SODIUM 100 MG CAPSULE PO SCH ×2 (09:18→20:36)
[2021-02-22] MEDS: APIXABAN 5 MG TABLET PO SCH ×2 (09:18→20:36)
[2021-02-22] MEDS: AMIODARONE 200 MG TABLET PO SCH (09:18)
[2021-02-22] MEDS: MULTIVITAMIN (CENTRUM) TABLET PO SCH (09:18)
[2021-02-22] MEDS: PANTOPRAZOLE 40 MG TABLET PO SCH (09:18)
[2021-02-22] MEDS: ASPIRIN EC 81 MG TABLET PO SCH (11:49)
[2021-02-23 06:55] LABS: Basophils % 0.8 % (0.0-0.8); Eosinophils # 0.1 10*3/uL (0.0-0.87); Eosinophils % 3.1 % (0.00-10.9); Hematocrit 36.4 VOL% (42.0-52.0); Hemoglobin 12.4 GM/DL (14.0-18.0); Immature Granulocytes % 0.3 %; Immature Granulocytes Absolute 0.01 #; Lymphocytes # 1.4 10*3/uL (1.4-4.0); Lymphocytes % 35.8 % (21.2-54.2); Mean Corpuscular HGB Conc 34.1 GM/DL (32-36); Mean Corpuscular Volume 98.6 FL (87-102); Mean Platelet Volume 11.2 FL (9.6-12.0); Monocytes % 14.9 % (1.7-12.7); Neutrophils % 45.1 % (38.7-73.9); Platelet Count 163 T/CUMM (130-400); Red Blood Count 3.69 MC/CUMM (3.8-5.5); Red Cell Distribution Width 14.6 % (9.3-17.3); White Blood Count 3.8 T/CUMM (4-12)
[2021-02-23] MEDS: OXYBUTYNIN XL 5 MG TABLET PO SCH ×2 (08:44→08:52)
[2021-02-23] MEDS: MULTIVITAMIN (CENTRUM) TABLET PO SCH (08:44)
[2021-02-23] MEDS: PANTOPRAZOLE 40 MG TABLET PO SCH (08:44)
[2021-02-23] MEDS: ASPIRIN EC 81 MG TABLET PO SCH (08:45)
[2021-02-23] MEDS: APIXABAN 5 MG TABLET PO SCH ×2 (08:45→20:43)
[2021-02-23] MEDS: DOCUSATE SODIUM 100 MG CAPSULE PO SCH ×2 (08:45→20:43)
[2021-02-23] MEDS: AMIODARONE 200 MG TABLET PO SCH (08:45)
[2021-02-23] MEDS: MIDODRINE 5 MG TABLET PO SCH ×2 (08:52→16:21)
[2021-02-23] MEDS ORDERED: TUBERCULIN SKIN TEST 0.1 ML SYRINGE INTRADERM ONE (15:34)
[2021-02-23] MEDS: ZALEPLON 5 MG CAPSULE PO SCH (20:43)
[2021-02-24 06:16] LABS: Basophils % 0.6 % (0.0-0.8); Eosinophils # 0.1 10*3/uL (0.0-0.87); Eosinophils % 3.5 % (0.00-10.9); Hematocrit 34.8 VOL% (42.0-52.0); Hemoglobin 11.6 GM/DL (14.0-18.0); Immature Granulocytes % 0.3 %; Immature Granulocytes Absolute 0.01 #; Lymphocytes # 1.2 10*3/uL (1.4-4.0); Lymphocytes % 35.4 % (21.2-54.2); Mean Corpuscular HGB Conc 33.3 GM/DL (32-36); Mean Platelet Volume 10.2 FL (9.6-12.0); Monocytes % 16.8 % (1.7-12.7); Neutrophils % 43.4 % (38.7-73.9); Platelet Count 168 T/CUMM (130-400); Red Blood Count 3.55 MC/CUMM (3.8-5.5); Red Cell Distribution Width 14.4 % (9.3-17.3); White Blood Count 3.5 T/CUMM (4-12)
[2021-02-24 06:38] LABS: Albumin 2.7 G/DL (3.4-5.0); Bilirubin,Total 0.7 MG/DL (0.20-1.00); Calcium 8.9 MG/DL (8.5-10.1); Osmolality,Calculated 274.7 MOS/KG (273-304); Total Protein 6.9 G/DL (6.4-8.2)
[2021-02-24 06:45] LABS: Band Neutrophils 1 % (0-10); Eosinophils 4 % (0-10); Lymphocytes 30 % (20-55); Platelet Estimate Normal; Segmented Neutrophils 51 % (50-85); Total Cells Counted 100
[2021-02-24] MEDS: OXYBUTYNIN XL 5 MG TABLET PO SCH (08:29)
[2021-02-24] MEDS: DOCUSATE SODIUM 100 MG CAPSULE PO SCH ×2 (08:29→21:11)
[2021-02-24] MEDS: MULTIVITAMIN (CENTRUM) TABLET PO SCH (08:29)
[2021-02-24] MEDS: ASPIRIN EC 81 MG TABLET PO SCH (08:30)
[2021-02-24] MEDS: AMIODARONE 200 MG TABLET PO SCH (08:30)
[2021-02-24] MEDS: PANTOPRAZOLE 40 MG TABLET PO SCH (08:30)
[2021-02-24] MEDS: APIXABAN 5 MG TABLET PO SCH ×2 (08:30→21:11)
[2021-02-24] MEDS: amLODIPine 5 MG TABLET PO SCH (08:37)
[2021-02-24] MEDS ORDERED: POLYETHYLENE GLYCOL POWDER 17 GM PACK PO PRN (15:23)
[2021-02-24 17:16] LABS: Barbiturates Screen,Urine Negative (Negative); Benzodiazepines Screen,Urine Negative (Negative); Cannabinoid Screen,Urine Positive (Negative); Opiate Screen,Urine Positive (Negative); Phencyclidine Screen,Urine Negative (Negative)
[2021-02-24] MEDS: ZALEPLON 5 MG CAPSULE PO SCH (21:11)
[2021-02-25 06:27] LABS: Basophils % 0.6 % (0.0-0.8); Eosinophils # 0.1 10*3/uL (0.0-0.87); Eosinophils % 3.3 % (0.00-10.9); Hematocrit 34.6 VOL% (42.0-52.0); Hemoglobin 11.2 GM/DL (14.0-18.0); Immature Granulocytes % 0.3 %; Immature Granulocytes Absolute 0.01 #; Lymphocytes # 1.3 10*3/uL (1.4-4.0); Lymphocytes % 35.7 % (21.2-54.2); Mean Corpuscular HGB Conc 32.4 GM/DL (32-36); Mean Corpuscular Volume 99.7 FL (87-102); Mean Platelet Volume 10.5 FL (9.6-12.0); Monocytes % 18.8 % (1.7-12.7); Neutrophils % 41.3 % (38.7-73.9); Platelet Count 159 T/CUMM (130-400); Red Blood Count 3.47 MC/CUMM (3.8-5.5); Red Cell Distribution Width 14.6 % (9.3-17.3); White Blood Count 3.6 T/CUMM (4-12)
[2021-02-25 06:36] LABS: Calcium 8.7 MG/DL (8.5-10.1); Osmolality,Calculated 274.7 MOS/KG (273-304); Potassium 4.1 MMOL/L (3.5-5.1)
[2021-02-25 06:55] LABS: Eosinophils 4 % (0-10); Hypochromasia Slight; Lymphocytes 31 % (20-55); Microcytosis Slight; Platelet Estimate Adequate; Segmented Neutrophils 51 % (50-85); Total Cells Counted 100
[2021-02-25] MEDS: ASPIRIN EC 81 MG TABLET PO SCH (09:35)
[2021-02-25] MEDS: DOCUSATE SODIUM 100 MG CAPSULE PO SCH ×2 (09:35→20:18)
[2021-02-25] MEDS: APIXABAN 5 MG TABLET PO SCH ×2 (09:36→20:18)
[2021-02-25] MEDS: amLODIPine 5 MG TABLET PO SCH ×2 (09:36→09:40)
[2021-02-25] MEDS: MULTIVITAMIN (CENTRUM) TABLET PO SCH (09:36)
[2021-02-25] MEDS: AMIODARONE 200 MG TABLET PO SCH (09:36)
[2021-02-25] MEDS: OXYBUTYNIN XL 5 MG TABLET PO SCH (09:36)
[2021-02-25] MEDS: PANTOPRAZOLE 40 MG TABLET PO SCH (09:36)
[2021-02-25] MEDS: ZALEPLON 5 MG CAPSULE PO SCH ×2 (20:19→21:19)
[2021-02-25] MEDS: MIDODRINE 5 MG TABLET PO SCH (20:19)
[2021-02-26 07:00] LABS: Basophils % 0.6 % (0.0-0.8); Eosinophils # 0.1 10*3/uL (0.0-0.87); Eosinophils % 3.8 % (0.00-10.9); Hematocrit 35.2 VOL% (42.0-52.0); Hemoglobin 11.4 GM/DL (14.0-18.0); Immature Granulocytes % 0.3 %; Immature Granulocytes Absolute 0.01 #; Lymphocytes # 1.2 10*3/uL (1.4-4.0); Lymphocytes % 33.7 % (21.2-54.2); Mean Corpuscular HGB Conc 32.4 GM/DL (32-36); Mean Corpuscular Volume 98.3 FL (87-102); Mean Platelet Volume 10.3 FL (9.6-12.0); Monocytes % 19.2 % (1.7-12.7); Neutrophils % 42.4 % (38.7-73.9); Platelet Count 159 T/CUMM (130-400); Red Blood Count 3.58 MC/CUMM (3.8-5.5); Red Cell Distribution Width 14.6 % (9.3-17.3); White Blood Count 3.4 T/CUMM (4-12)
[2021-02-26 07:20] LABS: Eosinophils 6 % (0-10); Hypochromasia Slight; Lymphocytes 33 % (20-55); Microcytosis Slight; Platelet Estimate Adequate; Segmented Neutrophils 44 % (50-85); Total Cells Counted 100
[2021-02-26 07:23] LABS: Calcium 9.1 MG/DL (8.5-10.1); Osmolality,Calculated 275.7 MOS/KG (273-304)
[2021-02-26] MEDS: OXYBUTYNIN XL 5 MG TABLET PO SCH (09:14)
[2021-02-26] MEDS: PANTOPRAZOLE 40 MG TABLET PO SCH (09:14)
[2021-02-26] MEDS: ASPIRIN EC 81 MG TABLET PO SCH (09:14)
[2021-02-26] MEDS: MULTIVITAMIN (CENTRUM) TABLET PO SCH (09:14)
[2021-02-26] MEDS: amLODIPine 5 MG TABLET PO SCH ×2 (09:14→09:17)
[2021-02-26] MEDS: DOCUSATE SODIUM 100 MG CAPSULE PO SCH ×2 (09:14→20:30)
[2021-02-26] MEDS: AMIODARONE 200 MG TABLET PO SCH (09:15)
[2021-02-26] MEDS: APIXABAN 5 MG TABLET PO SCH ×2 (09:15→20:30)
[2021-02-26] MEDS: MIDODRINE 5 MG TABLET PO SCH ×3 (09:17→20:30)
[2021-02-26] MEDS: ONDANSETRON 4 MG/2 ML VIAL IV PRN (12:58)
[2021-02-26] MEDS: ZALEPLON 5 MG CAPSULE PO SCH ×2 (20:30→23:06)
[2021-02-27 06:51] LABS: Basophils % 0.8 % (0.0-0.8); Eosinophils # 0.1 10*3/uL (0.0-0.87); Eosinophils % 3.5 % (0.00-10.9); Hemoglobin 11.2 GM/DL (14.0-18.0); Lymphocytes # 1.3 10*3/uL (1.4-4.0); Mean Corpuscular HGB Conc 32.9 GM/DL (32-36); Mean Corpuscular Volume 98.6 FL (87-102); Mean Platelet Volume 10.4 FL (9.6-12.0); Monocytes % 18.1 % (1.7-12.7); Neutrophils % 43.6 % (38.7-73.9); Platelet Count 165 T/CUMM (130-400); Red Blood Count 3.45 MC/CUMM (3.8-5.5); Red Cell Distribution Width 14.5 % (9.3-17.3); White Blood Count 3.8 T/CUMM (4-12)
[2021-02-27 07:13] LABS: Eosinophils 1 % (0-10); Lymphocytes 32 % (20-55); Platelet Estimate Normal; Segmented Neutrophils 57 % (50-85); Total Cells Counted 100
[2021-02-27 07:14] LABS: Potassium 4.1 MMOL/L (3.5-5.1)
[2021-02-27] MEDS: MULTIVITAMIN (CENTRUM) TABLET PO SCH (09:47)
[2021-02-27] MEDS: MIDODRINE 5 MG TABLET PO SCH (09:47)
[2021-02-27] MEDS: ASPIRIN EC 81 MG TABLET PO SCH (09:47)
[2021-02-27] MEDS: APIXABAN 5 MG TABLET PO SCH (09:47)
[2021-02-27] MEDS: PANTOPRAZOLE 40 MG TABLET PO SCH (09:47)
[2021-02-27] MEDS: OXYBUTYNIN XL 5 MG TABLET PO SCH (09:47)
[2021-02-27] MEDS: AMIODARONE 200 MG TABLET PO SCH (09:47)
[2021-02-27] MEDS: amLODIPine 5 MG TABLET PO SCH (09:48)
[2021-02-27] MEDS: DOCUSATE SODIUM 100 MG CAPSULE PO SCH (09:48)
[2021-02-27 12:20] VITALS: BP 173/72
== END 2021-02-27 15:05 | DRG 65 ==
LOC: EDBD → EDUNIT# → N.ED 15:31 → N.EDINP 19:35 → N.TELES 21:38
PROVIDERS: ADMIT Family Medicine; ATTEND Family Medicine